=== PATIENT | male | born 1970 | race Caucasian/White ===

== ENCOUNTER 2022-10-04 11:06 | Inpatient (IN) | payer SELFPAY ==
[~2022-10-04] VITALS: Ht 170.2 cm; Wt 80.0 kg
[2022-10-04 11:45] VITALS: BP 146/85
[2022-10-04 13:22] LABS: BASOPHILS % 0.5 % (0.0-2.0); EOSINOPHILS % 0.4 % (0.0-5.0); HEMATOCRIT. 43.3 % (42.0-52.0); HEMOGLOBIN. 14.4 g/dL (14.0-18.0); LYMPHOCYTES % 17.6 % (20.0-50.0); MEAN CORPUSCULAR HEMOGLOBIN 31.3 pg (28.0-32.0); MEAN CORPUSCULAR VOLUME 94.1 fL (80.0-94.0); MEAN PLATELET VOLUME 7.7 fl (7.4-10.4); MONOCYTES % 8.3 % (2.0-8.0); NEUTROPHILS % 73.2 % (40.0-76.0); PLATELET 263 x1000/uL (130-400); RED CELL DISTRIBUTION WIDTH 13.4 % (11.6-14.6)
[2022-10-04 13:38] LABS: CHLORIDE 106 mEq/L (98-107)
[2022-10-04] MEDS ORDERED: PROPOFOL 200MG/20ML VIAL IV ONE ×5 (14:46→15:36)
[2022-10-04] MEDS ORDERED: MIDAZOLAM HCL 2 MG/2 ML VIAL ONE (15:36)
[2022-10-04] MEDS ORDERED: DEXAMETHASONE 4MG/ML 1ML VIAL ONE (15:36)
[2022-10-04] MEDS ORDERED: SUCCINYLCHOLINE CHLORIDE 200MG/10ML IV ONE (15:36)
[2022-10-04] MEDS ORDERED: ONDANSETRON HCL 4MG/2ML INJ ONE (15:36)
[2022-10-04] MEDS ORDERED: CEFAZOLIN SODIUM 1000MG/VIAL ONE (15:36)
[2022-10-04] MEDS ORDERED: HYDRALAZINE 20MG/ML VIAL ONE (15:38)
[2022-10-04] MEDS ORDERED: SODIUM CHLORIDE 0.9% 1,000 ML IV SCH (18:15)
[2022-10-04] MEDS ORDERED: CEFTRIAXONE SODIUM 1 G/VIAL IM NR (19:50)
== END 2022-10-04 18:34 | disposition home or self-care (01) | DRG 254 ==
LOC: ER 11:06 → 6EST 14:26 → EDBEDREQ 14:31 → EDBEDREQTM 14:31 → ENRESERV 18:42 → MICUSO 23:04
PROVIDERS: ADMIT Family Medicine Adult Medicine; ATTEND Family Medicine Adult Medicine
PROC: 0DCP8ZZ Extirpation of Matter from Rectum, Via Natural or Artificial Opening Endoscopic (ICD-10-PCS; principal; 2022-10-04)
DX: T18.5XXA Foreign body in anus and rectum, initial encounter (principal); F17.210 Nicotine dependence, cigarettes, uncomplicated; N20.0 Calculus of kidney; K62.89 Other specified diseases of anus and rectum
CPT/HCPCS: 36415; 74018; 74176; 80053; 85025; 88300; 99285; J0330; J0360; J0690; J1100; J2250; J2405; J2704

== ENCOUNTER 2022-11-23 16:44 | Emergency (ER) | payer MEDICAID ==
[~2022-11-23] VITALS: Ht 177.8 cm; Wt 83.0 kg
[2022-11-23 17:02] VITALS: BP 149/104
[2022-11-23] MEDS ORDERED: ALBE200T8 PO (18:58)
[2022-11-23] MEDS ORDERED: DIPH28.33 TP (18:58)
== END 2022-11-23 19:00 | disposition home or self-care (01) ==
LOC: ER 16:44
DX: B80 Enterobiasis (principal); Z00.00 Encounter for general adult medical examination without abnormal findings; F14.10 Cocaine abuse, uncomplicated
CPT/HCPCS: 99283

== ENCOUNTER 2022-12-06 07:06 | Emergency (ER) | payer MEDICAID ==
[~2022-12-06] VITALS: Ht 180.3 cm; Wt 83.4 kg
[~2022-12-06 07:06] MED LIST: ALBE200T8 PO; DIPH28.33 TP
[2022-12-06] MEDS ORDERED: DIPH25CA83 MT (10:23)
[2022-12-06] MEDS ORDERED: ALBE200T8 PO (10:23)
[2022-12-06] MEDS ORDERED: HYDR453.3 TP (10:23)
[2022-12-06 10:34] VITALS: BP 130/90
[2022-12-10 04:12] LABS: OVA & PARASITE EXAM Final report (.)
== END 2022-12-06 10:36 | disposition home or self-care (01) ==
LOC: ER 07:06
DX: R21 Rash and other nonspecific skin eruption (principal); F14.10 Cocaine abuse, uncomplicated; F12.10 Cannabis abuse, uncomplicated; Z79.899 Other long term (current) drug therapy
CPT/HCPCS: 87177; 87209; 89055; 99281; 99283

== ENCOUNTER 2023-02-11 07:17 | Emergency (ER) | payer MEDICAID, OTHER ==
[~2023-02-11] VITALS: Ht 177.8 cm; Wt 84.0 kg
[~2023-02-11 07:17] MED LIST changes: +DIPH25CA83 MT; +HYDR453.3 TP
[2023-02-11 07:27] VITALS: BP 161/109; RESP 18; TEMP 98.8; O2SAT 99
[2023-02-11 07:28] VITALS: PULSE 83
[2023-02-11] MEDS ORDERED: ALBE200T8 PO (09:37)
== END 2023-02-11 10:04 | disposition home or self-care (01) ==
LOC: ER 07:17
DX: B89 Unspecified parasitic disease (principal); F14.10 Cocaine abuse, uncomplicated; G62.9 Polyneuropathy, unspecified; F12.10 Cannabis abuse, uncomplicated
CPT/HCPCS: 99281; 99283

== ENCOUNTER 2025-04-11 04:45 | Emergency (ER) | payer OTHER ==
[~2025-04-11] VITALS: Ht 180.3 cm; Wt 86.0 kg
[2025-04-11 04:52] VITALS: O2SAT 99
[2025-04-11] MEDS ORDERED: TRIMO RIGHTEYE (06:27)
[2025-04-11] MEDS ORDERED: TOPUD PO (06:27)
[2025-04-11] MEDS: FLUORESCEIN SODIUM 1MG/STRIP RIGHTEYE ONE (06:35)
[2025-04-11] MEDS: TETRACAINE 0.5% OPHTH DROPS 4ML BOTHEYE ONE (06:35)
[2025-04-11 06:46] VITALS: BP 150/101; PULSE 82; RESP 16; TEMP 36.9; O2SAT 98
== END 2025-04-11 06:47 | disposition home or self-care (01) ==
LOC: ER 04:45
DX: S05.00XA Injury of conjunctiva and corneal abrasion without foreign body, unspecified eye, initial encounter (principal); Z91.040 Latex allergy status; V89.2XXA Person injured in unspecified motor-vehicle accident, traffic, initial encounter; Y93.89 Activity, other specified; Y92.89 Other specified places as the place of occurrence of the external cause; Y99.8 Other external cause status
CPT/HCPCS: 99283

== ENCOUNTER 2025-05-05 04:45 | Emergency (ER) | payer OTHER ==
[~2025-05-05] VITALS: Ht 170.2 cm; Wt 69.0 kg
[~2025-05-05 04:45] MED LIST changes: +TOPUD PO; +TRIMO RIGHTEYE
[2025-05-05 04:53] VITALS: O2SAT 98
[2025-05-05] MEDS ORDERED: IBUP-1455 MT (05:11)
[2025-05-05] MEDS ORDERED: SULF1TAB48 MT (05:11)
[2025-05-05] MEDS ORDERED: MUPI1OIN4 TP (05:11)
[2025-05-05] MEDS: SULFAMETHOXAZOLE/TRIMETHOPRIM 800/160MG TABLET PO ONE (05:45)
[2025-05-05 05:47] VITALS: BP 136/88; PULSE 103; RESP 18; TEMP 36.8; O2SAT 99
[2025-05-05] MEDS: IBUPROFEN 600MG TABLET PO ONE (05:47)
== END 2025-05-05 05:47 | disposition home or self-care (01) ==
LOC: ER 05:15
DX: L03.011 Cellulitis of right finger (principal); F12.90 Cannabis use, unspecified, uncomplicated; F14.90 Cocaine use, unspecified, uncomplicated; Z91.040 Latex allergy status
CPT/HCPCS: 10060; 99283; Z7610 ×2